=== PATIENT | male | born 1985 | race Caucasian/White ===

== ENCOUNTER 2017-01-01 03:01 | Emergency (ER) | payer OTHER ==
[~2017-01-01] VITALS: Ht 175.3 cm; Wt 77.6 kg
[2017-01-01 03:05] VITALS: BP 119/63
--- NOTE | 2017-01-01 03:16 | PHYS DOC ---
Adult General Chief Complaint Chief Complaint: medical examination HPI HPI 31-year-old male presenting to the emergency department today after calling EMS wanting a medical evaluation. The patient currently denies suicidal or homicidal ideation. He lives at home with his family. He denies pain anywhere and denies any current symptoms. Review of systems is negative for chest pain shortness of breath nausea vomiting fevers chills headache confusion lethargy. He denies neck stiffness. All other review of systems is negative unless otherwise noted in history of present illness. ED course: 31-year-old male presenting to the emergency department today after calling EMS desiring a medical examination. Currently denies suicidal or homicidal ideation. Physical examination is unremarkable. Patient denies any pain or any acute symptoms. The patient was then discharged home in stable condition to follow up with their primary care physician over the next 2-3 days. They were to return if their symptoms worsened or if they were concerned for any reason. [id number] discharge instructions and return precautions were given. Patient's questions were answered to their satisfaction. Patient is comfortable plan. Review of Systems Review of Systems SEE ABOVE. Allergies Allergies Allergies Coded Allergies Type Severity Reaction Last Updated Verified No Known Drug Allergies 01/01/17 No Physical Exam Physical Exam SEE ABOVE Constitutional: Well developed, well nourished, no acute distress, non-toxic appearance. [] HENT: Normocephalic, atraumatic, no lacs abrasions or echymosis of head or neck , bilateral external ears normal, oropharynx moist, no oral exudates, nose normal. [] Eyes: PERRLA, EOMI, conjunctiva normal, no discharge. [] Neck: Normal range of motion, no tenderness, supple, no stridor. [] Cardiovascular:Heart rate regular rhythm, no murmur [] Lungs & Thorax: Bilateral breath sounds clear to auscultation [] Abdomen: Bowel sounds normal, soft, no tenderness, no masses, no pulsatile masses. [] Skin: Warm, dry, no erythema, no rash. [] Back: No tenderness, no CVA tenderness. [] Extremities: No tenderness, no cyanosis, no clubbing, ROM intact, no edema. [] Neurologic: Alert and oriented (nursing note states confused, pt has chronic schizophrenia but knows name and location) , normal motor function, normal sensory function, no focal deficits noted. [] Psychologic: Psych: Appearance: mildly disheveled M/S: Alert and oriented Mood/Affect: Normal Speech: Normal Insight: poor Hallucinations: denies auditory or visual hallucination SI or HI: None Current Patient Data Vital Signs Vital Signs Date Time Temp Pulse Resp B/P (MAP) Pulse Ox O2 Delivery O2 Flow Rate FiO2 01/01/17 03:05 97.6 82 18 119/63 (81) 98 Room Air 97.6 EKG EKG [] Radiology/Procedures Radiology/Procedures [] Course & Med Decision Making Course & Med Decision Making Pertinent Labs and Imaging studies reviewed. (See chart for details) [] Dragon Disclaimer Dragon Disclaimer This electronic medical record was generated, in whole or in part, using a voice recognition dictation system. Departure Departure Impression: Primary Impression: Encounter for medical screening examination Disposition: HOME, SELF-CARE Condition: STABLE Patient Instructions: Medical Screening Exam Additional Instructions: Thank you for allowing us to participate in your care today. Followup with your primary care physician in 2 days if your symptoms do not improve. Call your Primary Doctor tomorrow and inform them of your visit today. If you do not have a primary care provider you can ask for a list of our primary care providers. Return to the emergency department you have any new or concerning findings. This should be evaluated by the primary care physician and any necessary consulting services for continued management within a few days after discharge. Return to emergency room if you have any new or concerning symptoms including but not limited to fever, chills, nausea, vomiting, intractable pain, any new rashes, chest pain, shortness of air, uncontrolled bleeding, difficulty breathing, and/or vision loss. OLGA ALMEIDA MD Jan 01, 2017 03:16
== END 2017-01-01 03:35 | disposition home or self-care (01) ==
LOC: ER 03:01
DX: Z00.8 Encounter for other general examination (principal)
CPT/HCPCS: 99283

== ENCOUNTER 2017-01-02 11:40 | Emergency (ER) | payer OTHER ==
[2017-01-01 03:05] VITALS: BP 119/63
--- NOTE | 2017-01-02 12:25 | PHYS DOC ---
Past Medical History Past Medical History: Schizophrenia, Unknown Past Surgical History: No Surgical History, Other Additional Past Surgical Histo: UNKNOWN Alcohol Use: Heavy Drug Use: Marijuana Adult General Chief Complaint Chief Complaint: PSYCH EVALUATION HPI HPI Patient left without therapeutic reason before my medical screening exam. Allergies Allergies Allergies Coded Allergies Type Severity Reaction Last Updated Verified No Known Drug Allergies 01/01/17 No EKG EKG [] Radiology/Procedures Radiology/Procedures [] Course & Med Decision Making Course & Med Decision Making Pertinent Labs and Imaging studies reviewed. (See chart for details) [] Dragon Disclaimer Dragon Disclaimer This electronic medical record was generated, in whole or in part, using a voice recognition dictation system. Departure Departure Impression: Primary Impression: Left against medical advice Disposition: 07 AGAINST MEDICAL ADVICE Condition: STABLE Referrals: UNKNOWN PCP NAME (PCP) ROBIN SHAFFER DO Jan 02, 2017 12:25
== END 2017-01-02 12:46 | disposition left against medical advice (07) ==
LOC: ER 11:40
DX: Z00.8 Encounter for other general examination (principal); F20.9 Schizophrenia, unspecified; Z53.21 Procedure and treatment not carried out due to patient leaving prior to being seen by health care provider

== ENCOUNTER 2017-01-02 13:49 | Emergency (ER) | payer OTHER ==
[~2017-01-02] VITALS: Ht 175.3 cm; Wt 78.5 kg
--- NOTE | 2017-01-02 14:02 | PHYS DOC ---
Past Medical History Past Medical History: Schizophrenia, Unknown Past Surgical History: No Surgical History, Other Additional Past Surgical Histo: UNKNOWN Alcohol Use: Heavy Drug Use: Marijuana Adult General Chief Complaint Chief Complaint: PSYCH EVALUATION [facility] HPI Patient is a 31 year old male presenting to the emergency department for the third time in 2 days. He left Prior to my medical screening exam approximately 1 hour ago. I asked him what he is presenting to the emergency department for and he says that he can feel his pulse in multiple places on his chest for example he said that he can feel his pulse in the middle of his chest and then also on the left side of his chest when he puts his hand on his chest wall. He thinks that his heart is located in the wrong position in his chest cavity. I asked patient if he has any medical problems and he said no I asked if he takes no medications and he said he is taking Risperdal and Ativan. He denies any pain fevers chills nausea vomiting or other systemic symptoms. Review of Systems Review of Systems Constitutional: Denies fever or chills [] Respiratory: Denies cough or shortness of breath [] Cardiovascular: No additional information not addressed in [facility] [] GI: Denies abdominal pain, nausea, vomiting, bloody stools or diarrhea [] Musculoskeletal: Denies back pain or joint pain [] Integument: Denies rash or skin lesions [] Neurologic: Denies headache, focal weakness or sensory changes [] Allergies Allergies Allergies Coded Allergies Type Severity Reaction Last Updated Verified No Known Drug Allergies 01/01/17 No Physical Exam Physical Exam Constitutional: Well developed, well nourished, no acute distress, non-toxic appearance. [] Cardiovascular:Heart rate regular rhythm, no murmur [] Lungs & Thorax: Bilateral breath sounds clear to auscultation [] Abdomen: Bowel sounds normal, soft, no tenderness, no masses, no pulsatile masses. [] Skin: Warm, dry, no erythema, no rash. [] Back: No tenderness, no CVA tenderness. [] Extremities: No tenderness, no cyanosis, no clubbing, ROM intact, no edema. [] Neurologic: Alert and oriented X 3, normal motor function, normal sensory function, no focal deficits noted. [] Current Patient Data Vital Signs Vital Signs Date Time Temp Pulse Resp B/P (MAP) Pulse Ox O2 Delivery O2 Flow Rate FiO2 01/02/17 14:00 97.5 82 20 118/59 (78) 98 Room Air 97.5 Lab Values Laboratory Tests Test 01/02/17 14:25 01/02/17 14:30 White Blood Count 12.7 x10^3/uL (4.0-11.0) H Red Blood Count 4.77 x10^6/uL (4.30-5.70) Hemoglobin 14.7 g/dL (13.0-17.5) Hematocrit 43.7 % (39.0-53.0) Mean Corpuscular Volume 92 fL (79-100) Mean Corpuscular Hemoglobin 31 pg (25-35) Mean Corpuscular Hemoglobin Concent 34 g/dL (31-37) Red Cell Distribution Width 13.9 % (11.5-14.5) Platelet Count 207 x10^3/uL (140-400) Neutrophils (%) (Auto) 68 % (31-73) Lymphocytes (%) (Auto) 24 % (24-48) Monocytes (%) (Auto) 5 % (0-9) Eosinophils (%) (Auto) 3 % (0-3) Basophils (%) (Auto) 1 % (0-3) Neutrophils # (Auto) 8.6 x10^3uL (1.8-7.7) H Lymphocytes # (Auto) 3.1 x10^3/uL (1.0-4.8) Monocytes # (Auto) 0.6 x10^3/uL (0.0-1.1) Eosinophils # (Auto) 0.3 x10^3/uL (0.0-0.7) Basophils # (Auto) 0.1 x10^3/uL (0.0-0.2) Sodium Level 143 mmol/L (136-145) Potassium Level 4.0 mmol/L (3.5-5.1) Chloride Level 107 mmol/L (98-107) Carbon Dioxide Level 27 mmol/L (21-32) Anion Gap 9 (6-14) Blood Urea Nitrogen 10 mg/dL (8-26) Creatinine 1.0 mg/dL (0.7-1.3) Estimated GFR (Cockcroft-Gault) 86.6 BUN/Creatinine Ratio 10 (6-20) Glucose Level 116 mg/dL (70-99) H Calcium Level 8.8 mg/dL (8.5-10.1) Magnesium Level 1.9 mg/dL (1.8-2.4) Total Bilirubin 0.3 mg/dL (0.2-1.0) Aspartate Amino Transferase (AST) 25 U/L (15-37) Alanine Aminotransferase (ALT) 33 U/L (16-63) Alkaline Phosphatase 84 U/L (46-116) Creatine Kinase 52 U/L (39-308) Total Protein 6.7 g/dL (6.4-8.2) Albumin 3.5 g/dL (3.4-5.0) Albumin/Globulin Ratio 1.1 (1.0-1.7) Thyroid Stimulating Hormone (TSH) 0.681 uIU/mL (0.358-3.74) Salicylates Level 5.1 mg/dL (2.8-20.0) Salicylate Last Dose Date Unknown Salicylate Last Dose Time Unknown Acetaminophen Level < 2 mcg/ml (10-30) L Acetaminophen Last Dose Date [place] Acetaminophen Last Dose Time [place] Ethyl Alcohol Level < 10 mg/dL (0-10) Urine Opiates Screen Neg (NEG) Urine Methadone Screen Neg (NEG) Urine Barbiturates Neg (NEG) Urine Phencyclidine Screen Neg (NEG) Urine Amphetamine/Methamphetamine Neg (NEG) Urine Benzodiazepines Screen Neg (NEG) Urine Cocaine Screen Neg (NEG) Urine Cannabinoids Screen Pos (NEG) Urine Ethyl Alcohol Neg (NEG) Laboratory Tests 01/02/17 14:25 Laboratory Tests 01/02/17 14:25 EKG EKG [] Radiology/Procedures Radiology/Procedures [] Course & Med Decision Making Course & Med Decision Making He asks some bizarre questions but he is not suicidal or homicidal. He denies any physical complaints except for the heart location issue. We will get a medical screening labs and reassess patient as patient might need psychiatric evaluation. He has nonspecific leukocytosis however he has no headache neck stiffness fevers chills cough rash or dysuria. Patient is medically cleared from my standpoint. He has been accepted at [facility]. Bronwyn Disclaimer Bronwyn Disclaimer This electronic medical record was generated, in whole or in part, using a voice recognition dictation system. Departure Departure Impression: Primary Impression: Delusional disorder Disposition: 05 TRANSFER OTHER (RSI) Condition: STABLE Referrals: UNKNOWN PCP NAME (PCP) Patient Instructions: Hallucinations and Delusions ROBIN SHAFFER DO Jan 02, 2017 14:02
[2017-01-02 14:35] LABS: BASO # 0.1 x10^3/uL (0.0-0.2); BASO % 1 % (0-3); EOS % 3 % (0-3); HEMATOCRIT 43.7 % (39.0-53.0); HEMOGLOBIN 14.7 g/dL (13.0-17.5); LYMPH # 3.1 x10^3/uL (1.0-4.8); LYMPH % 24 % (24-48); MEAN CORPUSCULAR HEMOGLOBIN 31 pg (25-35); MEAN CORPUSCULAR HGB CONC 34 g/dL (31-37); MEAN CORPUSCULAR VOLUME 92 fL (79-100); MONO % 5 % (0-9); NEUT % 68 % (31-73); PLATELET COUNT 207 x10^3/uL (140-400); RED BLOOD COUNT 4.77 x10^6/uL (4.30-5.70); RED CELL DISTRIBUTION WIDTH 13.9 % (11.5-14.5); WHITE BLOOD COUNT 12.7 x10^3/uL (4.0-11.0)
[2017-01-02 14:50] LABS: BARBITURATES NEG (NEG); BENZODIAZEPINES NEG (NEG); CANNABINOIDS POS (NEG); COCAINE NEG (NEG); METHADONE NEG (NEG); OPIATES NEG (NEG); PHENCYCLIDINE NEG (NEG)
[2017-01-02 14:56] LABS: CALCIUM 8.8 mg/dL (8.5-10.1); GFR 86.6
[2017-01-02 14:58] LABS: ETHANOL < 10 mg/dL (0-10)
[2017-01-02 15:03] LABS: ALBUMIN 3.5 g/dL (3.4-5.0); ALBUMIN/GLOBULIN RATIO 1.1 (1.0-1.7); MAGNESIUM 1.9 mg/dL (1.8-2.4); TOTAL BILIRUBIN 0.3 mg/dL (0.2-1.0); TOTAL PROTEIN 6.7 g/dL (6.4-8.2)
--- NOTE | 2017-01-02 16:20 | EKG ---
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
[2017-01-02 16:34] VITALS: BP 127/67
== END 2017-01-02 18:09 | disposition short-term general hospital (02) ==
LOC: ER 13:49
DX: F22 Delusional disorders (principal); F20.9 Schizophrenia, unspecified; F10.10 Alcohol abuse, uncomplicated; D72.829 Elevated white blood cell count, unspecified
CPT/HCPCS: 36415; 80053; 80307; 80329; 82550; 83735; 84443; 85025; 93005; 99285; G0480; G0479